=== PATIENT | female | born 1940 | race African-American/Black ===

== ENCOUNTER 2016-12-06 20:10 | Emergency (ER) | payer MEDICARE, OTHER ==
[~2016-12-06] VITALS: Ht 160 cm; Wt 56.7 kg
[~2016-12-06 20:10] MED LIST: ASPIR-LOW81 MG ORAL; ATIVAN0.5 MG ORAL
[2016-12-06 20:37] VITALS: BP 154/73
[2016-12-06] MEDS ORDERED: TYLENOL EXTRA500 MG ORAL (21:41)
[2016-12-06 21:43] VITALS: BP 154/73
--- NOTE | 2016-12-07 10:51 | Diagnostic Imaging Report ---
Indications: PAIN Technique: Two views of the right humerus Comparison: None Findings: Bones are osteoporotic. No acute fractures. No dislocations. No radiopaque foreign body Impression: No acute process This agrees with the preliminary interpretation provided by the emergency room physician
--- NOTE | 2016-12-07 15:08 | Emergency Room Report ---
History of Present Illness General Chief Complaint: Pain Source: Patient Present Illness HPI 76-year-old female presents to ED complaining of right arm and shoulder pain x3 weeks. States that 3 weeks ago car door accidentally closed on her right arm. States the car door hit her on the right arm close to her shoulder. Denies any other injuries. Patient states he was initially very bruised but has since resolved. Patient states she does have persistent pain to right arm. Pain as throbbing, 7/10, worse with raising his shoulder. No other aggravating or relieving factors. Denies any other associated symptoms Allergies: Coded Allergies: PENICILLINS (Verified Allergy, Severe, Hives, 06/28/15) SULFAMETHOXAZOLE (Verified Allergy, Severe, Hives, 06/28/15) ACETAMINOPHEN (Verified Allergy, Unknown, Hives, 06/28/15) HYDROCODONE (Verified Allergy, Unknown, Hives, 06/28/15) SULFA (SULFONAMIDE ANTIBIOTICS) (Verified Allergy, Unknown, 06/28/15) PROCHLORPERAZINE (Verified Adverse Reaction, Severe, 06/28/15) gi upset Patient History Past Medical History: none Past Surgical History: none Pertinent Family History: none Social History: Denies: alcohol use, drug use, smoking Last Menstrual Period: N/A Now: No Immunizations: UTD Reviewed Nursing Documentation: PMH: Agreed, PSxH: Agreed Nursing Documentation-PMH Past Medical History: No History, Except For Hx Cardiac Problems: No Hx Cancer: No Hx Gastrointestinal Problems: Yes Hx Neurological Problems: No Review of Systems All Other Systems: negative except mentioned in HPI Physical Exam Vital Signs Date Time Temp Pulse Resp B/P Pulse Ox O2 Delivery O2 Flow Rate FiO2 12/06/16 20:28 98.2 77 19 154/73 99 Room Air Sp02 EP Interpretation: reviewed, normal General Appearance: no apparent distress, alert, GCS 15, non-toxic Head: normocephalic Eyes: bilateral eye PERRL, bilateral eye normal inspection ENT: normal ENT inspection Neck: normal inspection Respiratory: normal inspection Cardiovascular #1: normal inspection Gastrointestinal: normal inspection Rectal: deferred Genitourinary: no CVA tenderness Musculoskeletal: tender - R shoulder/humerus- full ROM noted. no deformity/ bruising Neurologic: alert, oriented x3, responsive, motor strength/tone normal, sensory intact, speech normal Psychiatric: normal inspection Skin: normal inspection Lymphatic: normal inspection Medical Decision Making Diagnostic Impression: Primary Impression: Contusion shoulder/arm Qualified Codes: S40.011A - Contusion of right shoulder, initial encounter; S40.021A - Contusion of right upper arm, initial encounter ER Course Hospital Course 76-year-old F presents to ED complaining of R shoulder/arm pain s/p hit by car door 3 weeks ago Differential diagnoses include: Fracture, dislocation, sprain, contusion Clinical course Patient placed on stretcher. After initial history and physical, I ordered Xrays of R shoulder/humerus Xrays prelim read shows no acute fracture/dislocation. reassurance given Diagnosis - contusion shoulder/arm Stable and discharged to home with prescription for tylenol. apply ice, keep elevated. weight bear as tolerated. Followup with PMD. Return to ED if symptoms recur or worsen Other X-Ray Diagnostic Results Other X-Ray Diagnostic Results : X-Ray Ordered: R shoulder, R humerus EP Interpretation: Yes Findings: no fractures, no dislocation, no soft tissue swelling Number of Views: 3 Other Impression Right shoulder-No fracture, no dislocation, no soft tissue swelling Right humerus-No fracture, no dislocation, no soft tissue swelling Last Vital Signs Date Time Temp Pulse Resp B/P Pulse Ox O2 Delivery O2 Flow Rate FiO2 12/06/16 21:43 98.2 77 19 154/73 99 Room Air Status: improved Disposition: HOME, SELF-CARE Condition: Stable Scripts Acetaminophen* (TYLENOL EXTRA STRENGTH*) 500 Mg Tablet 500 MG ORAL Q8H Y for Prn Headache/Temp > 101, #30 TAB 0 Refills Prov: ROSELINE CRAIG M.D. 12/06/16 Referrals: MIRIAM AMAYA Patient Instructions: Shoulder Pain, [id number] ROSELINE CRAIG M.D. Dec 07, 2016 15:08
--- NOTE | 2016-12-10 10:51 | Diagnostic Imaging Report ---
Indication: PAIN Technique: 3 views of the right shoulder Comparison: none Findings: Bones are demineralized. No acute fractures. No dislocations. Joint spaces are preserved Impression:No acute process This agrees with the preliminary interpretation provided by the emergency room physician
== END 2016-12-06 21:43 | disposition home or self-care (01) ==
LOC: EMR 20:47
DX: S40.011A Contusion of right shoulder, initial encounter (principal); X58.XXXA Exposure to other specified factors, initial encounter; Y93.9 Activity, unspecified; Y92.9 Unspecified place or not applicable; Z88.0 Allergy status to penicillin; Z88.2 Allergy status to sulfonamides; Z88.6 Allergy status to analgesic agent; Z87.19 Personal history of other diseases of the digestive system
CPT/HCPCS: 99283

== ENCOUNTER 2018-05-07 21:24 | Emergency (ER) | payer MEDICARE, OTHER ==
[~2018-05-07] VITALS: Ht 160 cm; Wt 54.0 kg
[~2018-05-07 21:24] MED LIST changes: +TYLENOL EXTRA500 MG ORAL
--- NOTE | 2018-05-07 21:54 | Emergency Room Report ---
History of Present Illness General Chief Complaint: Lower Extremity Injury Source: Patient Present Illness HPI This is 78-year-old female with chief complaint of ankle pain. She says she was walking down the steps and slipped and twisted her ankle. Complaining her pain to the ankle. Also with back pain. No loss of consciousness. Took Tylenol not helping much. No nausea no vomiting. Pain is 7 out of 10. Worse with movement. Able to walk. Not pass out. Allergies: Coded Allergies: PENICILLINS (Verified Allergy, Severe, Hives, 06/28/15) SULFAMETHOXAZOLE (Verified Allergy, Severe, Hives, 06/28/15) ACETAMINOPHEN (Verified Allergy, Unknown, Hives, 06/28/15) HYDROCODONE (Verified Allergy, Unknown, Hives, 06/28/15) SULFA (SULFONAMIDE ANTIBIOTICS) (Verified Allergy, Unknown, 06/28/15) PROCHLORPERAZINE (Verified Adverse Reaction, Severe, 06/28/15) gi upset Patient History Past Medical History: see triage record, old chart reviewed Past Surgical History: other Pertinent Family History: none Social History: Denies: smoking Last Menstrual Period: NA Now: No Immunizations: other Reviewed Nursing Documentation: PMH: Agreed; PSxH: Agreed Nursing Documentation-PMH Hx Cardiac Problems: No - hyperlipidemia Hx Cancer: No Hx Gastrointestinal Problems: Yes Hx Neurological Problems: No Review of Systems Eye: Denies: eye pain, blurred vision ENT: Denies: ear pain, nose congestion, throat swelling Respiratory: Denies: cough, shortness of breath Cardiovascular: Denies: chest pain, palpitations Gastrointestinal: Denies: abdominal pain, diarrhea, nausea, vomiting Musculoskeletal: Reports: back pain, joint pain Skin: Denies: rash Neurological: Denies: headache, numbness Endocrine: Denies: increased thirst, increased urine Hematologic/Lymphatic: Denies: easy bruising All Other Systems: negative except mentioned in HPI Physical Exam Vital Signs Date Time Temp Pulse Resp B/P (MAP) Pulse Ox O2 Delivery O2 Flow Rate FiO2 05/07/18 21:27 100.1 87 18 142/77 98 Room Air 100.0 vitals unremarkable. repeat temperature 98.7 Sp02 EP Interpretation: reviewed, normal General Appearance: well appearing, no apparent distress, alert Head: normocephalic, atraumatic Eyes: bilateral eye PERRL, bilateral eye EOMI ENT: hearing grossly normal, normal pharynx Neck: full range of motion, supple, no meningismus Respiratory: chest non-tender, lungs clear, normal breath sounds Cardiovascular #1: regular rate, rhythm, no murmur Gastrointestinal: normal bowel sounds, non tender, no mass, no organomegaly, no bruit, non-distended Musculoskeletal: back normal, gait/station normal, normal range of motion, tender - over the dorsum of foot over talar area. This is on the right Ankle. NVI Psychiatric: mood/affect normal Skin: warm/dry Medical Decision Making Diagnostic Impression: Primary Impression: Sprain of ankle, right Qualified Codes: S93.401A - Sprain of unspecified ligament of right ankle, initial encounter ER Course Patient presents with a mild ankle sprain. She is walking around without any difficulty. We'll discharge home. Other X-Ray Diagnostic Results Other X-Ray Diagnostic Results : X-Ray ordered: right ankle x-rays # of Views/Limited Vs Complete: 3 View Indication: Pain EP Interpretation: Yes Interpretation: no dislocation, no soft tissue swelling, no fractures Impression: No acute disease Electronically Signed by: Jimbo oRbert MD Last Vital Signs Date Time Temp Pulse Resp B/P (MAP) Pulse Ox O2 Delivery O2 Flow Rate FiO2 05/07/18 21:27 100.1 87 18 142/77 98 Room Air 100.0 Status: improved Disposition: HOME, SELF-CARE Condition: Stable Scripts Acetaminophen With Codeine (T#3) (TYLENOL #3 TAB*) Y Tab 1 TAB ORAL Q8H PRN for For Pain, #20 TAB Prov: JIMBO ROBERT M.D. 05/07/18 Patient Instructions: Ankle Sprain Additional Instructions: Follow-up with your doctor in 7 days. Return if worse. JIMBO ROBERT M.D. May 07, 2018 21:54
[2018-05-07] MEDS: Tylenol #3 tab (300mg/30mg) ORAL ONE ×2 (22:09→22:11)
[2018-05-07] MEDS ORDERED: ACETAMINOPHEN-1 EAC1 ORAL (22:11)
[2018-05-07 22:19] VITALS: BP 142/77
--- NOTE | 2018-05-08 09:35 | Diagnostic Imaging Report ---
Indication: Trauma, right ankle pain Technique: 3 views of the ] ankle Comparison: none Findings: Bones are osteoporotic. No acute fractures. No dislocations. The joint spaces are preserved. There is a plantar spur Impression: Osteoporosis No acute bony trauma
== END 2018-05-07 22:25 | disposition home or self-care (01) ==
LOC: EMR 21:48
DX: S93.401A Sprain of unspecified ligament of right ankle, initial encounter (principal); W01.0XXA Fall on same level from slipping, tripping and stumbling without subsequent striking against object, initial encounter; Y92.9 Unspecified place or not applicable; Z88.0 Allergy status to penicillin; Z88.2 Allergy status to sulfonamides; Z88.8 Allergy status to other drugs, medicaments and biological substances; E78.5 Hyperlipidemia, unspecified; M54.9 Dorsalgia, unspecified
CPT/HCPCS: 99283

== ENCOUNTER 2018-06-07 20:28 | Emergency (ER) | payer MEDICARE, OTHER ==
[~2018-06-07] VITALS: Ht 157.5 cm; Wt 49.9 kg
[~2018-06-07 20:28] MED LIST changes: +ACETAMINOPHEN-1 EAC1 ORAL
[2018-06-07 21:44] LABS: APPEARANCE,URINE CLEAR; BILIRUBIN, URINE NEGATIVE (NEGATIVE); COLOR,URINE PALE YELLOW; GLUCOSE, URINE (UA) NEGATIVE (NEGATIVE); KETONES,URINE NEGATIVE (NEGATIVE); LEUKOCYTE ESTERASE ,URINE 2+ (NEGATIVE); NITRITE,URINE NEGATIVE (NEGATIVE); PH,URINE 6.5 (4.5-8.0); PROTEIN,URINE NEGATIVE (NEGATIVE); UROBILINOGEN,URINE NORMAL MG/DL (0.0-1.0)
[2018-06-07 21:53] LABS: EOSINOPHILS % (AUTO) 1.6 % (0.0-3.0); HEMATOCRIT 38.7 % (37.0-47.0); HEMOGLOBIN 12.5 G/DL (12.0-16.0); LYMPHOCYTES % (AUTO) 18.5 % (20.0-45.0); MEAN CORPUSCULAR VOLUME 83 FL (80-99); PLATELET COUNT 226 K/UL (150-450); RED BLOOD COUNT 4.64 M/UL (4.20-5.40); RED CELL DISTRIBUTION WIDTH 12.1 % (11.6-14.8); WHITE BLOOD COUNT 8.3 K/UL (4.8-10.8)
[2018-06-07 22:00] LABS: ANION GAP 8 mmol/L (5-15); BLOOD UREA NITROGEN 8 mg/dL (7-18); CALCIUM 9.7 MG/DL (8.5-10.1); CARBON DIOXIDE 30 MMOL/L (21-32); CHLORIDE 104 MMOL/L (98-107); CREATININE 0.7 MG/DL (0.55-1.30); POTASSIUM 3.7 MMOL/L (3.5-5.1); SODIUM 142 MMOL/L (136-145)
--- NOTE | 2018-06-07 22:59 | Emergency Room Report ---
History of Present Illness General Chief Complaint: Skin Rash/Abscess Source: Patient Present Illness HPI This patient is concerned that she is dehydrated. She is also wondering if she has a dental infection/abscess. She has had normal po intake. She has a dentist appt. next week. No trauma, no fever, no shortness of breath, no chest pain, no nausea, no vomiting, no diarrhea, no abdominal pain, no syncope, LOC, dizziness , lightheadedness, headache. Allergies: Coded Allergies: PENICILLINS (Verified Allergy, Severe, Hives, 06/28/15) SULFAMETHOXAZOLE (Verified Allergy, Severe, Hives, 06/28/15) ACETAMINOPHEN (Verified Allergy, Unknown, Hives, 06/28/15) HYDROCODONE (Verified Allergy, Unknown, Hives, 06/28/15) SULFA (SULFONAMIDE ANTIBIOTICS) (Verified Allergy, Unknown, 06/28/15) PROCHLORPERAZINE (Verified Adverse Reaction, Severe, 06/28/15) gi upset Nursing Documentation-PMH Hx Cardiac Problems: No - hyperlipidemia Hx Cancer: No Hx Gastrointestinal Problems: Yes Hx Neurological Problems: No Review of Systems Constitutional: Reports: no symptoms Eye: Reports: no symptoms ENT: Reports: no symptoms Respiratory: Reports: no symptoms Cardiovascular: Reports: no symptoms Gastrointestinal: Reports: no symptoms Genitourinary: Reports: no symptoms Musculoskeletal: Reports: no symptoms Skin: Reports: no symptoms Psychiatric: Reports: no symptoms Neurological: Reports: no symptoms Endocrine: Reports: no symptoms Hematologic/Lymphatic: Reports: no symptoms Allergic: Reports: no symptoms Physical Exam Vital Signs Date Time Temp Pulse Resp B/P (MAP) Pulse Ox O2 Delivery O2 Flow Rate FiO2 06/07/18 20:36 97.4 78 16 160/90 98 Room Air 97.3 Sp02 EP Interpretation: reviewed, normal General Appearance: normal inspection, well appearing, no apparent distress, alert, GCS 15, non-toxic Head: normocephalic, atraumatic Eyes: bilateral eye normal inspection, bilateral eye PERRL, bilateral eye EOMI ENT: normal ENT inspection, hearing grossly normal, normal pharynx, no angioedema, normal voice, moist mucus membranes, other - pt. has dentures only upper and lower only has central 8 teeth. no palpable abscess. Neck: normal inspection, full range of motion, supple, no meningismus, no bony tend Respiratory: normal inspection, lungs clear, normal breath sounds, no rhonchi, no respiratory distress, no retraction, no accessory muscle use, no wheezing Cardiovascular #1: normal inspection, regular rate, rhythm, no edema Gastrointestinal: normal inspection, normal bowel sounds, non tender, soft, no mass, non-distended Musculoskeletal: gait/station normal, normal range of motion Neurologic: normal inspection, alert, oriented x3, responsive, motor strength/ tone normal Psychiatric: normal inspection, judgement/insight normal, memory normal Suicide Risk Assessment: Suicidal Ideation: No Had intent to initiate attempt: No Pt's plan for suicide attempt: No Has means to complete attempt: No Skin: normal inspection, normal color, no rash, warm/dry Medical Decision Making Diagnostic Impression: Primary Impression: Weakness ER Course I think patient is here primarily due to loneliness. Last Vital Signs Date Time Temp Pulse Resp B/P (MAP) Pulse Ox O2 Delivery O2 Flow Rate FiO2 06/07/18 20:36 97.4 78 16 160/90 98 Room Air 97.3 Disposition: HOME, SELF-CARE Condition: Stable Referrals: NON PHYSICIAN (PCP) Patient Instructions: Keiry [id number] Liu Nieto M.D. Jun 07, 2018 22:59
[2018-06-07 23:04] VITALS: BP 165/91
[2018-06-07 23:05] VITALS: BP 165/91
== END 2018-06-07 23:05 | disposition home or self-care (01) ==
LOC: EMR 21:09
DX: R53.1 Weakness (principal); Z88.6 Allergy status to analgesic agent; Z88.0 Allergy status to penicillin; Z88.2 Allergy status to sulfonamides; Z88.8 Allergy status to other drugs, medicaments and biological substances
CPT/HCPCS: 36415; 80048; 81001; 85025; 99283

== ENCOUNTER 2018-09-15 22:53 | Emergency (ER) | payer MEDICARE, OTHER ==
[~2018-09-15] VITALS: Ht 160 cm; Wt 53.5 kg
[2018-09-15] MEDS ORDERED: ATORVASTATIN CA10 MG ORAL (23:02)
[2018-09-15 23:19] VITALS: BP 154/75
[2018-09-15 23:30] LABS: APPEARANCE,URINE CLEAR; BILIRUBIN, URINE NEGATIVE (NEGATIVE); COLOR,URINE PALE YELLOW; GLUCOSE, URINE (UA) NEGATIVE (NEGATIVE); KETONES,URINE NEGATIVE (NEGATIVE); LEUKOCYTE ESTERASE ,URINE 1+ (NEGATIVE); NITRITE,URINE NEGATIVE (NEGATIVE); PH,URINE 5 (4.5-8.0); PROTEIN,URINE NEGATIVE (NEGATIVE); UROBILINOGEN,URINE NORMAL MG/DL (0.0-1.0)
[2018-09-15 23:39] LABS: BASOPHILS % (AUTO) 0.9 % (0.0-2.0); HEMATOCRIT 38.6 % (37.0-47.0); HEMOGLOBIN 12.4 G/DL (12.0-16.0); LYMPHOCYTES % (AUTO) 19.7 % (20.0-45.0); MEAN CORPUSCULAR VOLUME 81 FL (80-99); MONOCYTES % (AUTO) 7.4 % (1.0-10.0); PLATELET COUNT 214 K/UL (150-450); RED CELL DISTRIBUTION WIDTH 11.9 % (11.6-14.8); WHITE BLOOD COUNT 7.2 K/UL (4.8-10.8)
[2018-09-15 23:49] LABS: ANION GAP 7 mmol/L (5-15); BLOOD UREA NITROGEN 11 mg/dL (7-18); CALCIUM 9.1 MG/DL (8.5-10.1); CARBON DIOXIDE 29 MMOL/L (21-32); CHLORIDE 104 MMOL/L (98-107); CREATININE 0.7 MG/DL (0.55-1.30); POTASSIUM 4.2 MMOL/L (3.5-5.1); SODIUM 140 MMOL/L (136-145)
--- NOTE | 2018-09-16 00:17 | Emergency Room Report ---
History of Present Illness General Chief Complaint: General Complaint Source: Patient Present Illness HPI Is a 78-year-old female with a history also of ulcerative colitis with colon resection and colostomy. She presents with chief complaint of generalized weakness and felt like she is dehydrated. She has frequent urination. No fever chills but no nausea no vomiting. This appeared to be a chronic problem but worse in the last few days. Denies any other complaint. Said she gets fever around 2 AM every night. Does not take her temperature Boogie. Denies any loss of appetite. No pain. No cough or congestion. No abdominal pain. No diarrhea. Allergies: Coded Allergies: PENICILLINS (Verified Allergy, Severe, Hives, 06/28/15) SULFAMETHOXAZOLE (Verified Allergy, Severe, Hives, 06/28/15) ACETAMINOPHEN (Verified Allergy, Unknown, Hives, 06/28/15) HYDROCODONE (Verified Allergy, Unknown, Hives, 06/28/15) SULFA (SULFONAMIDE ANTIBIOTICS) (Verified Allergy, Unknown, 06/28/15) PROCHLORPERAZINE (Verified Adverse Reaction, Severe, 06/28/15) gi upset Patient History Past Medical History: see triage record, old chart reviewed Past Surgical History: other Pertinent Family History: none Social History: Denies: smoking Last Menstrual Period: n/a Now: No : 6 Para: 5 Immunizations: other Reviewed Nursing Documentation: PMH: Agreed; PSxH: Agreed Nursing Documentation-PM Past Medical History: No History, Except For Hx Cardiac Problems: No - hyperlipidemia Hx Cancer: No Hx Gastrointestinal Problems: Yes - ostomy Hx Neurological Problems: No Review of Systems Constitutional: Reports: weakness Eye: Denies: eye pain, blurred vision ENT: Denies: ear pain, nose congestion, throat swelling Respiratory: Denies: cough, shortness of breath Cardiovascular: Denies: chest pain, palpitations Gastrointestinal: Denies: abdominal pain, diarrhea, nausea, vomiting Musculoskeletal: Denies: back pain, joint pain Skin: Denies: rash Neurological: Denies: headache, numbness Endocrine: Denies: increased thirst, increased urine Hematologic/Lymphatic: Denies: easy bruising All Other Systems: negative except mentioned in HPI Physical Exam Vital Signs Date Time Temp Pulse Resp B/P (MAP) Pulse Ox O2 Delivery O2 Flow Rate FiO2 09/15/18 22:55 98.2 90 16 159/92 98 Room Air vitals with high blood pressure Sp02 EP Interpretation: reviewed, normal General Appearance: well appearing, no apparent distress, alert Head: normocephalic, atraumatic Eyes: bilateral eye PERRL, bilateral eye EOMI ENT: hearing grossly normal, normal pharynx Neck: full range of motion, supple, no meningismus Respiratory: chest non-tender, lungs clear, normal breath sounds Cardiovascular #1: regular rate, rhythm, no murmur Gastrointestinal: normal bowel sounds, non tender, no mass, no organomegaly, no bruit, non-distended Musculoskeletal: back normal, gait/station normal, normal range of motion Psychiatric: mood/affect normal Skin: warm/dry Medical Decision Making Diagnostic Impression: Primary Impression: Weakness generalized ER Course Patient with generalize weakness. No evidence of any infection. She felt better after IV fluid. We'll discharge home. Lab Results Impression labs unremarkable Last Vital Signs Date Time Temp Pulse Resp B/P (MAP) Pulse Ox O2 Delivery O2 Flow Rate FiO2 09/15/18 23:19 97.9 18 18 154/75 100 Room Air Status: improved Disposition: HOME, SELF-CARE Condition: Stable Referrals: NON PHYSICIAN (PCP) Additional Instructions: Follow-up with your doctor in 7 days. Return if worse. Jimbo Robert MD Sep 16, 2018 00:17
[2018-09-16 00:38] VITALS: BP 140/82
[2018-09-16 00:40] VITALS: BP 140/82
== END 2018-09-16 00:40 | disposition home or self-care (01) ==
LOC: EMR 23:10
DX: R53.1 Weakness (principal); R35.0 Frequency of micturition; Z88.0 Allergy status to penicillin; Z88.2 Allergy status to sulfonamides; Z88.8 Allergy status to other drugs, medicaments and biological substances
CPT/HCPCS: 36415; 80048; 81001; 85025; 96360; 99284

== ENCOUNTER 2019-08-27 03:51 | Emergency (ER) | payer MEDICARE, OTHER ==
[~2019-08-27] VITALS: Ht 160 cm; Wt 52.6 kg
[~2019-08-27 03:51] MED LIST changes: +ATORVASTATIN CA10 MG ORAL
--- NOTE | 2019-08-27 04:24 | Emergency Room Report ---
History of Present Illness General Chief Complaint: Dizziness Source: Patient, Medical Record Present Illness HPI This is a 79-year-old female with a history of hyperlipidemia. She presents with chief complaint of dizziness. She says she woke up an hour ago and felt dizzy. Room was not spinning but she felt some black spots in her eyes. She then became short of breath and felt her heart beating fast. She went to the kitchen to get some water. She said that got better. She came into be checked out make sure her blood pressure is okay. No nausea no vomiting. No fever chills but no focal deficit. She said when she breathes into paper bag it got better. Denies any other complaint. She said this happened to her before but not as bad. Allergies: Coded Allergies: PENICILLINS (Verified Allergy, Severe, Hives, 06/28/15) SULFAMETHOXAZOLE (Verified Allergy, Severe, Hives, 06/28/15) ACETAMINOPHEN (Verified Allergy, Unknown, Hives, 06/28/15) HYDROCODONE (Verified Allergy, Unknown, Hives, 06/28/15) SULFA (SULFONAMIDE ANTIBIOTICS) (Verified Allergy, Unknown, 06/28/15) PROCHLORPERAZINE (Verified Adverse Reaction, Severe, 06/28/15) gi upset Patient History Past Medical History: see triage record, old chart reviewed Past Surgical History: none Pertinent Family History: none Social History: Denies: smoking Now: No Immunizations: other Reviewed Nursing Documentation: PMH: Agreed; PSxH: Agreed Nursing Documentation-PMH Hx Cardiac Problems: No - hyperlipidemia Hx Cancer: No Hx Gastrointestinal Problems: Yes - ostomy Hx Neurological Problems: No Review of Systems Eye: Denies: eye pain, blurred vision ENT: Denies: ear pain, nose congestion, throat swelling Respiratory: Denies: cough, shortness of breath Cardiovascular: Denies: chest pain, palpitations Gastrointestinal: Denies: abdominal pain, diarrhea, nausea, vomiting Musculoskeletal: Denies: back pain, joint pain Skin: Denies: rash Neurological: Reports: dizziness; Denies: headache, numbness Endocrine: Denies: increased thirst, increased urine Hematologic/Lymphatic: Denies: easy bruising All Other Systems: negative except mentioned in HPI Physical Exam Vital Signs Date Time Temp Pulse Resp B/P (MAP) Pulse Ox O2 Delivery O2 Flow Rate FiO2 08/27/19 04:07 98.6 76 16 155/90 (111) 96 Room Air Vitals with high blood pressure Sp02 EP Interpretation: reviewed, normal General Appearance: well appearing, no apparent distress, alert Head: normocephalic, atraumatic Eyes: bilateral eye PERRL, bilateral eye EOMI ENT: hearing grossly normal, normal pharynx Neck: full range of motion, supple, no meningismus Respiratory: chest non-tender, lungs clear, normal breath sounds Cardiovascular #1: regular rate, rhythm, no murmur Gastrointestinal: normal bowel sounds, non tender, no mass, no organomegaly, no bruit, non-distended Musculoskeletal: back normal, gait/station normal, normal range of motion Psychiatric: mood/affect normal Medical Decision Making Diagnostic Impression: Primary Impression: Dizziness of unknown cause ER Course Patient presents with dizziness. Her vitals has been stable here. Heart rates been in the 60. She is walking around without any difficulty. I see no evidence of TIA or CVA. No evidence of ACS palpitation or anemia. Will discharge home. EKG Diagnostic Results Rate: normal Rhythm: NSR ST Segments: no acute changes Rhythm Strip Diag. Results EP Interpretation: yes Rate: 67 Rhythm: NSR, no PVC's, no ectopy CT/MRI/US Diagnostic Results CT/MRI/US Diagnostic Results : Imaging Test Ordered: CT head Impression Negative per radiologist Last Vital Signs Date Time Temp Pulse Resp B/P (MAP) Pulse Ox O2 Delivery O2 Flow Rate FiO2 08/27/19 04:07 98.6 76 16 155/90 (111) 96 Room Air Status: improved Disposition: HOME, SELF-CARE Condition: Stable Referrals: NON PHYSICIAN (PCP) Patient Instructions: Dizziness Additional Instructions: Follow-up with your doctor in 7 days. Return if worse. Jimbo Robert MD Aug 27, 2019 04:24
[2019-08-27 04:41] LABS: APPEARANCE,URINE CLEAR; BILIRUBIN, URINE NEGATIVE (NEGATIVE); COLOR,URINE PALE YELLOW; GLUCOSE, URINE (UA) NEGATIVE (NEGATIVE); KETONES,URINE NEGATIVE (NEGATIVE); LEUKOCYTE ESTERASE ,URINE NEGATIVE (NEGATIVE); NITRITE,URINE NEGATIVE (NEGATIVE); PH,URINE 7 (4.5-8.0); PROTEIN,URINE NEGATIVE (NEGATIVE); UROBILINOGEN,URINE NORMAL MG/DL (0.0-1.0)
[2019-08-27 04:42] LABS: BASOPHILS % (AUTO) 0.9 % (0.0-2.0); HEMATOCRIT 40.7 % (37.0-47.0); HEMOGLOBIN 13.2 G/DL (12.0-16.0); LYMPHOCYTES % (AUTO) 21.7 % (20.0-45.0); MEAN CORPUSCULAR VOLUME 83 FL (80-99); MONOCYTES % (AUTO) 6.3 % (1.0-10.0); NEUTROPHILS % (AUTO) 69.1 % (45.0-75.0); PLATELET COUNT 224 K/UL (150-450); RED BLOOD COUNT 4.91 M/UL (4.20-5.40); WHITE BLOOD COUNT 6.3 K/UL (4.8-10.8)
[2019-08-27 04:50] LABS: ANION GAP 9 mmol/L (5-15); BLOOD UREA NITROGEN 7 mg/dL (7-18); CALCIUM 9.4 MG/DL (8.5-10.1); CARBON DIOXIDE 29 MMOL/L (21-32); CHLORIDE 106 MMOL/L (98-107); CREATININE 0.7 MG/DL (0.55-1.30); POTASSIUM 3.6 MMOL/L (3.5-5.1); SODIUM 144 MMOL/L (136-145)
[2019-08-27 05:20] VITALS: BP 146/88
[2019-08-27 05:30] VITALS: BP 146/88
--- NOTE | 2019-08-27 05:34 | Diagnostic Imaging Report ---
Indications: Vertigo, visual changes with black spots in her eyes Technique: Spiral acquisitions obtained through the brain. Angled axial and coronal 5 x 5 mm slices were reconstructed. Total dose length product 1551 mGycm. CTDI vol(s) 62 mGy. Dose reduction achieved using automated exposure control Comparison: None. Findings: Old lacunar infarcts are seen in the right perifrontal deep white matter and in the anterior limb of left internal capsule. No acute intracranial hemorrhage or edema. No mass effect nor midline shift. Godinez-white differentiation is normal. Normal size ventricles and extra axial CSF spaces. Visualized orbits and sinuses are unremarkable. The mastoids are clear. The calvarium is intact. Impression: Old lacunar infarcts. Negative for acute intracranial bleed or mass effect The CT scanner at [facility] is accredited by the [employer] and the scans are performed using protocols designed to limit radiation exposure to as low as reasonably achievable to attain images of sufficient resolution adequate for diagnostic evaluation.
--- NOTE | 2019-08-29 15:36 | Cardiology Report ---
APPROVED REPORT EKG Measurement Heart [id number] Normal sinus rhythm Anteroseptal infarct, age undetermined Possible Left atrial enlargement Borderline ECG
== END 2019-08-27 05:30 | disposition home or self-care (01) ==
LOC: EMR 04:15
DX: R42 Dizziness and giddiness (principal); E78.5 Hyperlipidemia, unspecified; Z88.0 Allergy status to penicillin; Z88.2 Allergy status to sulfonamides; Z88.5 Allergy status to narcotic agent; Z88.6 Allergy status to analgesic agent
CPT/HCPCS: 36415; 70450; 80048; 81001; 84484; 85025; 93005; 96360; 99284